=== PATIENT | male | born 1950 | race Two or more races ===

== ENCOUNTER 2020-01-01 08:25 | Outpatient (CLI) | payer OTHER | END 2020-01-01 08:30 | disposition home or self-care (01) | LOC: TOM 08:25 | PROVIDERS: ATTEND Urology | DX: C61 Malignant neoplasm of prostate (principal) ==

== ENCOUNTER 2020-01-10 | Outpatient (CLI) | payer OTHER | END 2020-01-10 00:01 | disposition home or self-care (01) | LOC: LAB → EDSTATUS 09:48 | PROVIDERS: ATTEND Urology | DX: C61 Malignant neoplasm of prostate (principal); Z11.59 Encounter for screening for other viral diseases; Z20.828 Contact with and (suspected) exposure to other viral communicable diseases ==

== ENCOUNTER 2020-01-12 08:26 | Inpatient (IN) | payer OTHER ==
[~2020-01-12] VITALS: Ht 162.6 cm; Wt 86.2 kg
[2020-01-12] MEDS ORDERED: SYNTHROID75 MCG PO (09:02)
[2020-01-12] MEDS ORDERED: ZESTORETIC 20-1 EACH PO (09:02)
[2020-01-14] MEDS ORDERED: KETOROLAC TROMET5 ML (08:32)
== END 2020-01-16 09:21 | disposition home or self-care (01) | DRG 708 ==
LOC: SURH 08:26 → SURG 01-14 05:48 → O/R 01-14 05:48 → SURH 01-14 07:00 → SURG 01-14 13:19
PROVIDERS: ADMIT Urology; ATTEND Urology
PROC: 07TC0ZZ Resection of Pelvis Lymphatic, Open Approach (ICD-10-PCS; 2020-01-14)
PROC: 0VT00ZZ Resection of Prostate, Open Approach (ICD-10-PCS; principal; 2020-01-14 07:00)
DX: C61 Malignant neoplasm of prostate (principal); I10 Essential (primary) hypertension

== ENCOUNTER 2021-02-02 09:05 | Outpatient (CLI) | payer OTHER ==
[~2021-02-02 09:05] MED LIST: KETOROLAC TROMET5 ML; SYNTHROID75 MCG PO; ZESTORETIC 20-1 EACH PO
== END 2021-02-02 09:06 | disposition home or self-care (01) ==
LOC: LAB 09:05
PROVIDERS: ATTEND Internal Medicine Hematology & Oncology
DX: C61 Malignant neoplasm of prostate (principal)

== ENCOUNTER 2021-03-14 16:10 | Outpatient (CLI) | payer OTHER | END 2021-03-14 16:13 | disposition home or self-care (01) | LOC: LAB 16:10 | PROVIDERS: ATTEND Urology | DX: C61 Malignant neoplasm of prostate (principal) ==

== ENCOUNTER 2021-06-20 06:36 | Outpatient (CLI) | payer OTHER | END 2021-06-20 06:41 | disposition home or self-care (01) | LOC: LAB 06:36 | PROVIDERS: ATTEND Urology | DX: C61 Malignant neoplasm of prostate (principal) ==

== ENCOUNTER 2021-10-03 16:06 | Outpatient (CLI) | payer OTHER | END 2021-10-03 16:10 | disposition home or self-care (01) | LOC: LAB 16:06 | PROVIDERS: ATTEND Urology | DX: C61 Malignant neoplasm of prostate (principal) ==

== ENCOUNTER 2022-01-03 07:22 | Outpatient (CLI) | payer OTHER | END 2022-01-03 07:23 | disposition home or self-care (01) | LOC: LAB 07:22 | PROVIDERS: ATTEND Urology | DX: N40.0 Benign prostatic hyperplasia without lower urinary tract symptoms (principal); R05.9 Cough, unspecified; C61 Malignant neoplasm of prostate ==

== ENCOUNTER 2022-04-17 09:36 | Outpatient (CLI) | payer OTHER | END 2022-04-17 09:37 | disposition home or self-care (01) | LOC: LAB 09:36 | PROVIDERS: ATTEND Urology | DX: C61 Malignant neoplasm of prostate (principal) ==

== ENCOUNTER 2022-10-20 08:08 | Outpatient (CLI) | payer OTHER | END 2022-10-20 08:15 | disposition home or self-care (01) | LOC: LAB 08:08 | DX: E03.9 Hypothyroidism, unspecified (principal); D64.9 Anemia, unspecified; E55.9 Vitamin D deficiency, unspecified; E78.5 Hyperlipidemia, unspecified; I11.9 Hypertensive heart disease without heart failure; N39.0 Urinary tract infection, site not specified; Z12.11 Encounter for screening for malignant neoplasm of colon; M81.0 Age-related osteoporosis without current pathological fracture; N40.0 Benign prostatic hyperplasia without lower urinary tract symptoms; C61 Malignant neoplasm of prostate; R00.2 Palpitations; E11.9 Type 2 diabetes mellitus without complications; E78.2 Mixed hyperlipidemia ==

== ENCOUNTER 2023-01-30 09:01 | Outpatient (CLI) | payer OTHER | END 2023-01-30 09:05 | disposition home or self-care (01) | LOC: LAB 09:01 | DX: C61 Malignant neoplasm of prostate (principal) ==

== ENCOUNTER 2023-01-30 09:56 | Outpatient (CLI) | payer OTHER | END 2023-01-30 10:05 | disposition home or self-care (01) | LOC: RAD 09:56 | PROVIDERS: ATTEND General Practice | DX: M25.551 Pain in right hip (principal); M54.50 Low back pain, unspecified ==

== ENCOUNTER 2023-03-17 09:12 | Outpatient (CLI) | payer OTHER | END 2023-03-17 09:15 | disposition home or self-care (01) | LOC: RAD 09:12 | PROVIDERS: ATTEND General Practice | DX: M25.561 Pain in right knee (principal); M25.469 Effusion, unspecified knee ==

== ENCOUNTER → 2023-06-01 10:47 | Outpatient (CLI) | payer OTHER ==
[2023-06-01 12:09] LABS: HEMATOCRIT 38.7 % (39.0-48.0); HEMOGLOBIN 13.7 g/dL (13-16.00); MEAN CELL VOLUME 88.9 fL (80.0-100.00); MEAN CORPUSCULAR HEMOGLOBIN 31.4 pg (27.00-32.0); MEAN CORPUSCULAR HGB CONC 35.3 g/dl (32.0-36.0); PLATELET COUNT 293 K/uL (150-450); RED BLOOD COUNT 4.36 M/uL (4.00-6.00); RED CELL DISTRIBUTION WIDTH 14.5 % (11.5-14.5)
[2023-06-01 12:49] LABS: ALBUMIN 3.9 gm/dL (3.4-5.0); ALKALINE PHOSPHATASE 104 U/L (50-136); ALT/SGPT 39 U/L (12-78); ANION GAP 9 (10.0-20.0); AST/SGOT 20 U/L (15-37); BILIRUBIN TOTAL 0.37 mg/dL (0.3-1.2); BLOOD UREA NITROGEN 27 mg/dL (7-18); BUN CREA RATIO 30 (7.0-25.0); CALCIUM 9.4 mg/dL (8.5-10.1); CARBON DIOXIDE 31 mEq/L (21-32); CHLORIDE 106 mmol/L (98-107); CREATININE SERUM 0.89 mg/dL (0.70-1.30); GFR 84.26; GLOBULINA 3.8 G/DL (2.4-3.5); GLUCOSE FASTING 99 mg/dL (65-100); OSMOLALITY SERUM 288 MOSM/KG (275-295); SODIUM 142 mmol/L (136-145); TOTAL PROTEIN 7.7 gm/dL (6.4-8.2)
[2023-06-01 12:52] LABS: PROSTATIC SPECIFIC ANTIGEN < 0.010 NG/ML (0.010-4.00)
== END | disposition home or self-care (01) ==
LOC: LAB 10:47
PROVIDERS: ATTEND Radiology Radiation Oncology
DX: C61 Malignant neoplasm of prostate (principal); R00.2 Palpitations; I11.9 Hypertensive heart disease without heart failure; E11.9 Type 2 diabetes mellitus without complications; E78.2 Mixed hyperlipidemia; Z88.0 Allergy status to penicillin

== ENCOUNTER 2023-08-16 12:06 | Outpatient (CLI) | payer OTHER ==
[2023-08-16 13:01] LABS: HEMATOCRIT 40.2 % (39.0-48.0); HEMOGLOBIN 13.8 g/dL (13-16.00); MEAN CELL VOLUME 88.3 fL (80.0-100.00); MEAN CORPUSCULAR HEMOGLOBIN 30.4 pg (27.00-32.0); MEAN CORPUSCULAR HGB CONC 34.5 g/dl (32.0-36.0); PLATELET COUNT 298 K/uL (150-450); RED BLOOD COUNT 4.55 M/uL (4.00-6.00); RED CELL DISTRIBUTION WIDTH 14.7 % (11.5-14.5)
[2023-08-16 13:02] LABS: URINE APPEARANCE Clear; URINE BILIRRUBIN Negative (NEGATIVE); URINE BLOOD Negative; URINE COLOR Yellow; URINE GLUCOSE Negative (NEGATIVE); URINE LEUKOCYTE Negative; URINE NITRATE Negative; URINE PROTEIN Negative (NEGATIVE); URINE UROBILINOGEN 0.2 E.U./dl
[2023-08-16 13:04] LABS: URINE EPITHELIAL CELLS 1.9 uL (0.0-38.8); URINE WBC 2.3 uL (0.0-23.2)
[2023-08-16 13:17] LABS: URINE BACTERIA 3.7 uL (0.0-1933); URINE RBC 1.4 uL (0.0-20.8)
[2023-08-16 13:34] LABS: ALBUMIN 4.2 gm/dL (3.4-5.0); ALKALINE PHOSPHATASE 88 U/L (50-136); ALT/SGPT 39 U/L (12-78); ANION GAP 10 (10.0-20.0); AST/SGOT 22 U/L (15-37); BILIRUBIN TOTAL 0.42 mg/dL (0.3-1.2); BLOOD UREA NITROGEN 21 mg/dL (7-18); BUN CREA RATIO 24 (7.0-25.0); CALCIUM 9.7 mg/dL (8.5-10.1); CARBON DIOXIDE 31 mEq/L (21-32); CHLORIDE 103 mmol/L (98-107); CHOL HDL RATIO 4.7 (0-5.0); CHOLESTEROL 177 mg/dL (0-200); CREATININE SERUM 0.89 mg/dL (0.70-1.30); GFR 84.26; GLOBULINA 3.7 G/DL (2.4-3.5); GLUCOSE FASTING 104 mg/dL (65-100); HDL 38 mg/dl (40-60); LDL 107 mg/dl (0-130); OSMOLALITY SERUM 281 MOSM/KG (275-295); POTASSIUM 4.71 mEq/L (3.5-5.1); SODIUM 139 mmol/L (136-145); TOTAL PROTEIN 7.9 gm/dL (6.4-8.2); TRIGLYCERIDES 158 mg/dL (0-150); VLDL 31 (0-39)
[2023-08-16 13:35] LABS: PROSTATIC SPECIFIC ANTIGEN < 0.010 NG/ML (0.010-4.00)
== END 2023-08-16 12:07 | disposition home or self-care (01) ==
LOC: LAB 12:06
PROVIDERS: ATTEND General Practice
DX: N39.0 Urinary tract infection, site not specified (principal); E03.9 Hypothyroidism, unspecified; D64.9 Anemia, unspecified; E55.9 Vitamin D deficiency, unspecified; E78.5 Hyperlipidemia, unspecified; I11.9 Hypertensive heart disease without heart failure; N40.0 Benign prostatic hyperplasia without lower urinary tract symptoms

== ENCOUNTER 2023-08-16 13:05 | Outpatient (CLI) | payer OTHER | END 2023-08-16 13:09 | disposition home or self-care (01) | LOC: RAD 13:05 | DX: R05.9 Cough, unspecified (principal); Z13.820 Encounter for screening for osteoporosis ==

== ENCOUNTER 2023-08-28 08:07 | Outpatient (CLI) | payer OTHER | END 2023-08-28 08:08 | disposition home or self-care (01) | LOC: NUCLEAR 08:07 | DX: I10 Essential (primary) hypertension (principal); E78.5 Hyperlipidemia, unspecified ==

== ENCOUNTER 2023-08-29 08:01 | Outpatient (CLI) | payer OTHER | END 2023-08-29 08:04 | disposition home or self-care (01) | LOC: NUCLEAR 08:01 | PROVIDERS: ATTEND General Practice | DX: Z13.820 Encounter for screening for osteoporosis (principal); M81.0 Age-related osteoporosis without current pathological fracture; E78.5 Hyperlipidemia, unspecified; I11.9 Hypertensive heart disease without heart failure ==

== ENCOUNTER 2023-09-05 10:23 | Outpatient (CLI) | payer OTHER | END 2023-09-05 10:24 | disposition home or self-care (01) | LOC: NUCLEAR 10:23 | PROVIDERS: ATTEND General Practice | DX: R53.82 Chronic fatigue, unspecified (principal) ==

== ENCOUNTER 2024-02-22 07:12 | Outpatient (CLI) | payer OTHER ==
[2024-02-22 08:06] LABS: HEMATOCRIT 39.7 % (39.0-48.0); HEMOGLOBIN 13.5 g/dL (13-16.00); MEAN CELL VOLUME 88.3 fL (80.0-100.00); PLATELET COUNT 295 K/uL (150-450); RED BLOOD COUNT 4.49 M/uL (4.00-6.00)
[2024-02-22 08:08] LABS: PH,URINE 5.5 (5.0-8.0); URINE APPEARANCE Clear; URINE BILIRRUBIN Negative (NEGATIVE); URINE BLOOD Negative; URINE COLOR Yellow; URINE GLUCOSE Negative (NEGATIVE); URINE KETONE Negative (NEGATIVE); URINE LEUKOCYTE Negative; URINE NITRATE Negative; URINE PROTEIN Negative (NEGATIVE)
[2024-02-22 08:11] LABS: URINE BACTERIA 26.4 uL (0.0-1933); URINE EPITHELIAL CELLS 2.1 uL (0.0-38.8); URINE WBC 5.8 uL (0.0-23.2)
[2024-02-22 08:12] LABS: URINE RBC 1.6 uL (0.0-20.8)
[2024-02-22 09:34] LABS: ALKALINE PHOSPHATASE 83 U/L (50-136); ALT/SGPT 37 U/L (12-78); ANION GAP 11 (10.0-20.0); AST/SGOT 23 U/L (15-37); BILIRUBIN TOTAL 0.56 mg/dL (0.3-1.2); BLOOD UREA NITROGEN 22 mg/dL (7-18); BUN CREA RATIO 23 (7.0-25.0); CALCIUM 9.3 mg/dL (8.5-10.1); CARBON DIOXIDE 31 mEq/L (21-32); CHLORIDE 104 mmol/L (98-107); CHOL HDL RATIO 2.6 (0-5.0); CHOLESTEROL 102 mg/dL (0-200); CREATININE SERUM 0.94 mg/dL (0.70-1.30); GFR 79.11; GLOBULINA 3.3 G/DL (2.4-3.5); GLUCOSE FASTING 118 mg/dL (65-100); HDL 40 mg/dl (40-60); LDL 48 mg/dl (0-130); OSMOLALITY SERUM 288 MOSM/KG (275-295); POTASSIUM 4.23 mEq/L (3.5-5.1); SODIUM 142 mmol/L (136-145); TOTAL PROTEIN 7.3 gm/dL (6.4-8.2); TRIGLYCERIDES 70 mg/dL (0-150); VLDL 14 (0-39)
[2024-02-22 09:35] LABS: PROSTATIC SPECIFIC ANTIGEN < 0.010 NG/ML (0.010-4.00)
[2024-02-22 10:23] LABS: T3 TOTAL 1.11 ng/ml (0.846-2.02); VITAMIN D3 25 HYDROXY 37.35 ng/ml (30-120)
== END 2024-02-22 07:13 | disposition home or self-care (01) ==
LOC: LAB 07:12
PROVIDERS: ATTEND General Practice
DX: E11.69 Type 2 diabetes mellitus with other specified complication (principal); I11.9 Hypertensive heart disease without heart failure; D64.9 Anemia, unspecified; N39.0 Urinary tract infection, site not specified; Z12.11 Encounter for screening for malignant neoplasm of colon; E55.9 Vitamin D deficiency, unspecified; E03.9 Hypothyroidism, unspecified

== ENCOUNTER → 2024-06-25 08:38 | Outpatient (CLI) | payer OTHER ==
[2024-06-25 09:28] LABS: URINE APPEARANCE Clear; URINE BILIRRUBIN Negative (NEGATIVE); URINE BLOOD Negative; URINE COLOR Yellow; URINE GLUCOSE Negative (NEGATIVE); URINE KETONE Negative (NEGATIVE); URINE LEUKOCYTE Negative; URINE NITRATE Negative; URINE PROTEIN Negative (NEGATIVE); URINE UROBILINOGEN 0.2 E.U./dl
[2024-06-25 09:55] LABS: URINE EPITHELIAL CELLS 10.5 uL (0.0-38.8); URINE RBC 3.2 uL (0.0-20.8); URINE WBC 9.4 uL (0.0-23.2)
== END | disposition home or self-care (01) ==
LOC: LAB 08:38
DX: C61 Malignant neoplasm of prostate (principal)

== ENCOUNTER 2024-08-29 07:57 | Outpatient (CLI) | payer OTHER ==
[2024-08-29 08:51] LABS: HEMATOCRIT 43.8 % (39.0-48.0); HEMOGLOBIN 14.8 g/dL (13-16.00); MEAN CELL VOLUME 88.9 fL (80.0-100.00); MEAN CORPUSCULAR HEMOGLOBIN 30.1 pg (27.00-32.0); MEAN CORPUSCULAR HGB CONC 33.9 g/dl (32.0-36.0); PLATELET COUNT 291 K/uL (150-450); RED BLOOD COUNT 4.92 M/uL (4.00-6.00); RED CELL DISTRIBUTION WIDTH 14.9 % (11.5-14.5)
[2024-08-29 09:02] LABS: URINE APPEARANCE Clear; URINE BILIRRUBIN Negative (NEGATIVE); URINE BLOOD Negative; URINE COLOR Yellow; URINE GLUCOSE Negative (NEGATIVE); URINE KETONE Negative (NEGATIVE); URINE LEUKOCYTE Negative; URINE NITRATE Negative; URINE PROTEIN Negative (NEGATIVE); URINE UROBILINOGEN 0.2 E.U./dl
[2024-08-29 09:06] LABS: URINE BACTERIA 42.8 uL (0.0-1933); URINE EPITHELIAL CELLS 9.6 uL (0.0-38.8); URINE RBC 2.5 uL (0.0-20.8); URINE WBC 2.6 uL (0.0-23.2)
[2024-08-29 10:29] LABS: ALBUMIN 4.1 gm/dL (3.4-5.0); ALKALINE PHOSPHATASE 83 U/L (50-136); ALT/SGPT 40 U/L (12-78); ANION GAP 6 (10.0-20.0); AST/SGOT 25 U/L (15-37); BILIRUBIN TOTAL 0.56 mg/dL (0.3-1.2); BLOOD UREA NITROGEN 22 mg/dL (7-18); BUN CREA RATIO 23 (7.0-25.0); CALCIUM 9.3 mg/dL (8.5-10.1); CARBON DIOXIDE 34 mEq/L (21-32); CHLORIDE 106 mmol/L (98-107); CHOL HDL RATIO 5.2 (0-5.0); CHOLESTEROL 217 mg/dL (0-200); CREATININE SERUM 0.97 mg/dL (0.70-1.30); GFR 76.08; GLOBULINA 3.7 G/DL (2.4-3.5); GLUCOSE FASTING 109 mg/dL (65-100); HDL 42 mg/dl (40-60); LDL 152 mg/dl (0-130); OSMOLALITY SERUM 287 MOSM/KG (275-295); POTASSIUM 4.49 mEq/L (3.5-5.1); PROSTATIC SPECIFIC ANTIGEN < 0.010 NG/ML (0.010-4.00); SODIUM 142 mmol/L (136-145); T4 TOTAL 7.07 UG/DL (4.5-12.1); TOTAL PROTEIN 7.8 gm/dL (6.4-8.2); TRIGLYCERIDES 113 mg/dL (0-150); VLDL 22 (0-39)
[2024-08-29 11:01] LABS: T3 TOTAL 1.12 ng/ml (0.846-2.02); VITAMIN D3 25 HYDROXY 35.79 ng/ml (30-120)
== END 2024-08-29 07:58 | disposition home or self-care (01) ==
LOC: LAB 07:57
DX: D64.9 Anemia, unspecified (principal); I11.9 Hypertensive heart disease without heart failure; E11.69 Type 2 diabetes mellitus with other specified complication; N39.0 Urinary tract infection, site not specified; R30.0 Dysuria; N40.0 Benign prostatic hyperplasia without lower urinary tract symptoms; E03.9 Hypothyroidism, unspecified; E78.5 Hyperlipidemia, unspecified; Z12.11 Encounter for screening for malignant neoplasm of colon; E55.9 Vitamin D deficiency, unspecified; C61 Malignant neoplasm of prostate

== ENCOUNTER 2024-09-19 13:46 | Outpatient (CLI) | payer OTHER | END 2024-09-19 13:55 | disposition home or self-care (01) | LOC: RAD 13:46 | DX: R05.9 Cough, unspecified (principal); Z13.820 Encounter for screening for osteoporosis ==

== ENCOUNTER → 2025-03-27 06:54 | Outpatient (CLI) | payer OTHER ==
[2025-03-27 07:23] LABS: BASO % 0.3 % (0.1-1.2); EOS # 0.07 (0.04-0.54); EOS % 1.0 % (0.7-7.0); LYMPH # 2.16 (1.18-3.74); LYMPH % 30.3 % (19.3-53.1); MEAN PLATELET VOLUME 8.70 fl (9.4-12.4); MONO # 0.56 (0.24-0.82); MONO % 7.9 % (4.7-12.5); NEUT # 4.27 (1.56-6.13); NEUT % 59.9 % (34.0-71.1); RED CELL DISTRIBUTION WIDTH 13.6 % (11.6-14.4)
[2025-03-27 07:41] LABS: URINE APPEARANCE Clear; URINE BILIRRUBIN Negative (NEGATIVE); URINE BLOOD Negative; URINE COLOR Yellow; URINE GLUCOSE Negative (NEGATIVE); URINE KETONE Negative (NEGATIVE); URINE LEUKOCYTE Negative; URINE NITRATE Negative; URINE PROTEIN Negative (NEGATIVE); URINE UROBILINOGEN 1.0 E.U./dl
[2025-03-27 07:45] LABS: URINE BACTERIA 56.4 uL (0.0-1933); URINE EPITHELIAL CELLS 8.7 uL (0.0-38.8); URINE RBC 2.9 uL (0.0-20.8); URINE WBC 7.3 uL (0.0-23.2)
[2025-03-27 08:17] LABS: URINE CAST 0.14 uL (0.0-1.40)
[2025-03-27 08:53] LABS: ALT/SGPT 41.0 U/L (12-78); AST/SGOT 16.0 U/L (15-37); BILIRUBIN TOTAL 0.54 mg/dL (0.3-1.2); BUN CREA RATIO 21.0 (7.0-25.0); CHOL HDL RATIO 4.5 (0-5.0); CREATININE SERUM 1.04 mg/dL (0.70-1.30); GFR 70.0; GLOBULINA 3.2 G/DL (2.4-3.5); GLUCOSE FASTING 118.0 mg/dL (65-100); HDL 38.0 mg/dl (40-60); LDL 114.0 mg/dl (0-130); OSMOLALITY SERUM 288.0 MOSM/KG (275-295); T4 TOTAL 6.79 UG/DL (4.5-12.1); TSH 2.62 uIU/mL (0.358-3.74); VLDL 18.0 (0-39)
== END | disposition home or self-care (01) ==
LOC: LAB 06:54
DX: E11.69 Type 2 diabetes mellitus with other specified complication (principal); I11.9 Hypertensive heart disease without heart failure; D64.9 Anemia, unspecified; N39.0 Urinary tract infection, site not specified; E03.9 Hypothyroidism, unspecified; E78.5 Hyperlipidemia, unspecified; R30.0 Dysuria

== ENCOUNTER 2025-06-03 10:13 | Outpatient (CLI) | payer OTHER ==
[2025-06-03 11:44] LABS: URINE APPEARANCE Clear; URINE BILIRRUBIN Negative (NEGATIVE); URINE BLOOD Negative; URINE COLOR Yellow; URINE GLUCOSE Negative (NEGATIVE); URINE KETONE Negative (NEGATIVE); URINE LEUKOCYTE Negative; URINE NITRATE Negative; URINE PROTEIN Negative (NEGATIVE); URINE UROBILINOGEN 1.0 E.U./dl
[2025-06-03 11:47] LABS: URINE BACTERIA 4.7 uL (0.0-1933); URINE CAST 0.14 uL (0.0-1.40); URINE EPITHELIAL CELLS 4.1 uL (0.0-38.8); URINE RBC 1.4 uL (0.0-20.8); URINE WBC 0.9 uL (0.0-23.2)
== END 2025-06-03 10:14 | disposition home or self-care (01) ==
LOC: LAB 10:13
PROVIDERS: ATTEND Urology
DX: C61 Malignant neoplasm of prostate (principal)